=== PATIENT | female | born 1980 ===

== ENCOUNTER 2017-11-22 21:35 | Inpatient (IN) | payer OTHER ==
[~2017-11-22] VITALS: Ht 162.6 cm; Wt 98.4 kg
[2017-11-22] MEDS ORDERED: BUSP15 PO (22:16)
[2017-11-22] MEDS ORDERED: VENLAFAXINE HCL PO (22:16)
[2017-11-22] MEDS ORDERED: FLUV50 PO (22:16)
[2017-11-22] MEDS ORDERED: HYDHCL25 PO (22:16)
[2017-11-22] MEDS ORDERED: [UNRECOGNIZED DRUG - REMARK] (22:17)
[2017-11-22 22:19] LABS: Source, Urine Clean Catch
[2017-11-22 22:22] LABS: BASOPHILS ABSOLUTE AUTO 0.08 K/mm3 (0.00-0.23); BASOPHILS PERCENT AUTO 1 % (0-2); EOSINOPHILS ABSOLUTE AUTO 0.09 K/mm3 (0.00-0.68); EOSINOPHILS PERCENT AUTO 1 % (0-6); IMMATURE GRAN ABSOLUTE AUTO 0.03 K/mm3 (0.00-0.10); IMMATURE GRAN PERCENT AUTO 0 % (0-1); LYMPHOCYTES ABSOLUTE AUTO 3.56 K/mm3 (0.84-5.20); LYMPHOCYTES PERCENT AUTO 29 % (21-46); MONOCYTES ABSOLUTE AUTO 0.55 K/mm3 (0.16-1.47); MONOCYTES PERCENT AUTO 4 % (4-13); Mean Corpuscular HGB 27.6 pg (26.0-34.0); Mean Corpuscular HGB Conc 33.3 g/dL (31.5-36.5); Mean Corpuscular Volume 83 fL (80-100); NEUTROPHILS ABSOLUTE AUTO 8.07 K/mm3 (1.96-9.15); NEUTROPHILS PERCENT AUTO 65 % (41-73); Platelet Count 449 K/mm3 (150-400); RDW Coefficient Variation 14.3 % (11.7-14.2); Red Blood Cell Count 4.71 M/mm3 (3.80-5.20); White Blood Cell Count 12.38 K/mm3 (4.00-11.30)
[2017-11-22 22:23] LABS: Appearance, Urine Clear (Clear); Bilirubin, Urine Neg (Neg); Blood, Urine 2+ (Neg); Color, Urine Yellow (P-Yellow); Glucose Qualitative, Urine Neg (Neg); Ketones, Urine Neg (Neg); Leukocyte Esterase, Urine 1+ (Neg); Nitrite, Urine Neg (Neg); Protein, Urine Neg (Neg); Urobilinogen, Urine NORM (Normal)
[2017-11-22 22:38] LABS: Alanine Aminotransfer (ALT/SGP 28 U/L (12-78); Albumin, Blood 4.4 g/dL (3.4-5.0); Albumin/Globulin Ratio 1.1 (0.8-1.8); Alk Phos 88 U/L (50-136); Anion Gap 11 mmol/L (6-16); Aspartate Aminotrans (AST/SGOT 13 U/L (12-37); Bilirubin, Total 0.3 mg/dL (0.1-1.0); Blood Urea Nitrogen 9 mg/dL (8-24); Bun/Creatinine Ratio 11.8 (12.0-20.0); CO2, Blood 23 mmol/L (21-32); Chloride, Blood 107 mmol/L (98-108); Creatinine, Blood 0.76 mg/dL (0.40-1.00); Ethanol (Alcohol), Blood, Med <3 mg/dL; Globulin, Blood 4.1 g/dL (2.2-4.0); Glomerular Filtration Rate >60 (60-); Glucose, Blood 110 mg/dL (70-99); Potassium, Blood 3.5 mmol/L (3.5-5.5); Salicylate <1.7 mg/dL (2.8-20.0); Sodium, Blood 141 mmol/L (136-145); Total Protein, Blood 8.5 g/dL (6.4-8.2)
[2017-11-22 22:46] LABS: U Amphetamine Screen Not Detected; U Barbituate Screen Not Detected; U Benzodiazapine Screen Not Detected; U Buprenorphine Screen Not Detected; U Cannabinoids Screen DETECTED; U Cocaine Screen Not Detected; U Methadone Screen Not Detected; U Methamphetamine Screen Not Detected; U Opiates Screen Not Detected; U Oxycodone Screen Not Detected; U Phencyclidine Screen Not Detected; U Propoxyphene Screen Not Detected
[2017-11-22 22:47] LABS: Acetaminophen, Random <2.0 ug/mL (10.0-30.0)
[2017-11-22 22:48] LABS: Red Blood Cells, Urine 0-2 /hpf (0-2); White Blood Cells, Urine 0-2 /hpf (0-5)
[2017-11-22 22:49] LABS: Bacteria Mod /hpf; Squamous Epithelial Cells Many /hpf (Few)
[2017-11-23] MEDS ORDERED: OXCA150 PO (01:07)
[2017-11-23] MEDS ORDERED: FLUV50 PO (01:36)
[2017-11-23 04:23] LABS: BASOPHILS ABSOLUTE AUTO 0.05 K/mm3 (0.00-0.23); BASOPHILS PERCENT AUTO 1 % (0-2); EOSINOPHILS ABSOLUTE AUTO 0.08 K/mm3 (0.00-0.68); EOSINOPHILS PERCENT AUTO 1 % (0-6); Hematocrit 33.2 % (33.0-51.0); Hemoglobin 11.1 g/dL (11.5-16.0); IMMATURE GRAN ABSOLUTE AUTO 0.03 K/mm3 (0.00-0.10); IMMATURE GRAN PERCENT AUTO 0 % (0-1); LYMPHOCYTES ABSOLUTE AUTO 3.22 K/mm3 (0.84-5.20); LYMPHOCYTES PERCENT AUTO 31 % (21-46); MONOCYTES ABSOLUTE AUTO 0.47 K/mm3 (0.16-1.47); MONOCYTES PERCENT AUTO 5 % (4-13); Mean Corpuscular HGB 27.9 pg (26.0-34.0); Mean Corpuscular HGB Conc 33.4 g/dL (31.5-36.5); Mean Corpuscular Volume 83 fL (80-100); Mean Platelet Volume 9.9 fL (9.1-12.4); NEUTROPHILS ABSOLUTE AUTO 6.41 K/mm3 (1.96-9.15); NEUTROPHILS PERCENT AUTO 62 % (41-73); Platelet Count 367 K/mm3 (150-400); RDW Coefficient Variation 14.4 % (11.7-14.2); RDW Standard Deviation 43.7 fL (35.1-46.3); Red Blood Cell Count 3.98 M/mm3 (3.80-5.20); White Blood Cell Count 10.26 K/mm3 (4.00-11.30)
[2017-11-23 04:40] LABS: Anion Gap 8 mmol/L (6-16); Blood Urea Nitrogen 7 mg/dL (8-24); Bun/Creatinine Ratio 9.4 (12.0-20.0); CO2, Blood 23 mmol/L (21-32); Calcium, Blood 7.9 mg/dL (8.5-10.1); Chloride, Blood 110 mmol/L (98-108); Creatinine, Blood 0.75 mg/dL (0.40-1.00); Glomerular Filtration Rate >60 (60-); Glucose, Blood 90 mg/dL (70-99); Potassium, Blood 3.3 mmol/L (3.5-5.5); Sodium, Blood 141 mmol/L (136-145)
== END 2017-11-23 15:44 | disposition home or self-care (01) | DRG 918 ==
LOC: ER 21:35 → ICUW 11-23 00:11 → ICUE 11-23 00:11
PROVIDERS: Emergency Medicine; Hospitalist
DX: T43.592A Poisoning by other antipsychotics and neuroleptics, intentional self-harm, initial encounter (principal); N39.0 Urinary tract infection, site not specified; T43.222A Poisoning by selective serotonin reuptake inhibitors, intentional self-harm, initial encounter; F32.9 Major depressive disorder, single episode, unspecified; F43.10 Post-traumatic stress disorder, unspecified
CPT/HCPCS: 36415; 80048; 80053; 81001; 81025; 84443; 85025; 87086; 93005; 93010; 96361; 96374; 99285; G0480; J0696; J1650; J3480; J7030

== ENCOUNTER 2021-01-28 14:19 | Observation (INO) | payer OTHER ==
[~2021-01-28] VITALS: Ht 162.6 cm; Wt 119.1 kg
[~2021-01-28 14:19] MED LIST: BUSP15 PO; FLUV50 PO; HYDHCL25 PO; OXCA150 PO; [UNRECOGNIZED DRUG - REMARK]
[2021-01-28 15:34] LABS: Source, Urine Voided
[2021-01-28 15:43] LABS: Appearance, Urine Clear (Clear); Bilirubin, Urine Neg (Neg); Blood, Urine Neg (Neg); Color, Urine Yellow (P-Yellow); Glucose Qualitative, Urine Neg (Neg); Ketones, Urine Neg (Neg); Leukocyte Esterase, Urine Neg (Neg); Nitrite, Urine Neg (Neg); Protein, Urine Neg (Neg); Urobilinogen, Urine NORM (Normal)
[2021-01-28 15:54] LABS: U Amphetamine Screen Not Detected; U Barbituate Screen Not Detected; U Benzodiazapine Screen DETECTED; U Buprenorphine Screen Not Detected; U Cannabinoids Screen DETECTED; U Cocaine Screen Not Detected; U Methadone Screen Not Detected; U Methamphetamine Screen Not Detected; U Opiates Screen Not Detected; U Oxycodone Screen Not Detected; U Phencyclidine Screen Not Detected; U Propoxyphene Screen Not Detected
[2021-01-28 16:08] LABS: BASOPHILS ABSOLUTE AUTO 0.07 K/mm3 (0.00-0.23); BASOPHILS PERCENT AUTO 1 % (0-2); EOSINOPHILS ABSOLUTE AUTO 0.21 K/mm3 (0.00-0.68); EOSINOPHILS PERCENT AUTO 2 % (0-6); Hematocrit 33.6 % (33.0-51.0); IMMATURE GRAN ABSOLUTE AUTO 0.04 K/mm3 (0.00-0.10); IMMATURE GRAN PERCENT AUTO 0 % (0-1); LYMPHOCYTES ABSOLUTE AUTO 2.74 K/mm3 (0.84-5.20); LYMPHOCYTES PERCENT AUTO 29 % (21-46); MONOCYTES ABSOLUTE AUTO 0.42 K/mm3 (0.16-1.47); MONOCYTES PERCENT AUTO 4 % (4-13); Mean Corpuscular HGB 27.2 pg (26.0-34.0); Mean Corpuscular HGB Conc 32.7 g/dL (31.5-36.5); Mean Corpuscular Volume 83 fL (80-100); Mean Platelet Volume 9.5 fL (9.1-12.4); NEUTROPHILS ABSOLUTE AUTO 5.97 K/mm3 (1.96-9.15); NEUTROPHILS PERCENT AUTO 63 % (41-73); Platelet Count 429 K/mm3 (150-400); RDW Coefficient Variation 14.1 % (11.7-14.2); RDW Standard Deviation 42.2 fL (35.1-46.3); Red Blood Cell Count 4.05 M/mm3 (3.80-5.20); White Blood Cell Count 9.45 K/mm3 (4.00-11.30)
[2021-01-28 16:29] LABS: Alanine Aminotransfer (ALT/SGP 27 U/L (12-78); Albumin, Blood 3.8 g/dL (3.4-5.0); Albumin/Globulin Ratio 0.9 (0.8-1.8); Alk Phos 114 U/L (50-136); Anion Gap 5 mmol/L (6-16); Aspartate Aminotrans (AST/SGOT 11 U/L (12-37); Bilirubin, Total 0.3 mg/dL (0.1-1.0); Blood Urea Nitrogen 9 mg/dL (8-24); Bun/Creatinine Ratio 10.5 (12.0-20.0); CO2, Blood 29 mmol/L (21-32); Calcium, Blood 8.7 mg/dL (8.5-10.1); Chloride, Blood 103 mmol/L (98-108); Creatinine, Blood 0.86 mg/dL (0.40-1.00); Ethanol (Alcohol), Blood, Med <3 mg/dL; Globulin, Blood 4.1 g/dL (2.2-4.0); Glomerular Filtration Rate >60 (60-); Glucose, Blood 95 mg/dL (70-99); Potassium, Blood 3.7 mmol/L (3.5-5.5); Salicylate <1.7 mg/dL (2.8-20.0); Sodium, Blood 137 mmol/L (136-145); Total Protein, Blood 7.9 g/dL (6.4-8.2)
[2021-01-28 16:37] LABS: Acetaminophen, Random <2.0 ug/mL (10.0-30.0)
[2021-01-28] MEDS ORDERED: Prinivil10 MG PO (22:08)
[2021-01-28] MEDS ORDERED: Ativan1 MG PO (22:09)
[2021-01-28] MEDS ORDERED: PRAZ2 PO (22:10)
[2021-01-28] MEDS ORDERED: Venlafaxine HC150 MG PO (22:11)
[2021-01-28] MEDS ORDERED: SEROQUEL100 MG PO (22:11)
[2021-01-28] MEDS ORDERED: LAMO100 (22:55)
--- NOTE | 2021-01-28 23:49 | NUR ---
NO OFFICIAL ORDER FOR 2 MD HOLD AT THIS TIME. SPOKE WITH HERLINDA KRAUS, SHE STATED THAT TELEPSYCH RECOMMENDED A 2 MD HOLD, HOWEVER AT THIS TIME THE PT WANTS TO BE HERE AND IS VOLANTARILY STAYING HERE, SO SHE DID NOT FEEL IT WAS NECESSARY FOR THE 2 MD HOLD. IF THE PT ATTEMPTED TO LEAVE OR THE SITUATION CHANGES WE CAN REASSESS THE NEED FOR THE ACTUAL ORDER FOR THE 2MD HOLD.
--- NOTE | 2021-01-29 05:00 | NUR ---
SUMMARY PT ARRIVED TO FLOOR IN NO DISTRESS. PT CALM AND PLESANT. PT DENIES ANY PAIN OR DISCOMFORT. PT PROVIDED A CPAP BY RT. PT ON 24 HR CONTINOUS SPO2, SPO2 >90%. PT ONLY MODERATE RISK AND HERE VOLUNTARILY. PT NOT ON TWO MD HOLD. PT CURRENTLY SLEEPING IN NO DISTRESS. CALL LIGHT IN REACH.
--- NOTE | 2021-01-29 16:05 | NUR ---
SHIFT SUMMARY NO ACUTE CHANGES TO PRESENT THIS SHIFT. PT RESTING QUIETLY ON CPAP WHILE SLEEPING. SITTING UP IN BED TO EAT BREAKFAST. PT ON INVOLENTARY HOLD FOR SI. PT HAS DENIED SI THIS SHIFT. PT WAS TEARFUL AT ONE POINT FOR A FEW MINUTES, BUT DECLINED NEEDS, DECLINED DISCUSSION. PT'S SPOUSE HERE THIS AFTERNOON. ASSISTED PT WITH WASHING HER HAIR IN THE SHOWER. PT HAS BEEN PLEASANT AND CO-OP. DENIES FURTHER NEEDS. DISCUSSED MEDICATIONS WITH PT AND . HOME MEDS COMPLETE. CALL LT IN REACH.
--- NOTE | 2021-01-30 06:31 | NUR ---
SHIFT SUMMARY A/OX4, IND IN ROOM. USE OF CPAP AT NIGHT WITH CONT. BIOX IN PLACE. PT TEARFUL WHEN DISCUSSING CURRENT SITUATION. PROVIDED ACTIVE LISTENING AND THERAPUTIC COMMUNICATION, PT
--- NOTE | 2021-01-30 13:28 | NUR ---
PT RESTING QUIETLY AGAIN, AT START OF SHIFT, ON CPAP. PT TEARFUL AT TIMES. DR GARCES AND [employer] INTERN HERE THIS AM TO SEE PT AND DISCUSS PLAN OF CARE. PT TO BE TRANSFERED TO [facility] THIS AFTERNOON. PT HAS BEEN PLEASANT AND CO-OP. UP TO SHOWER THIS AM. PT'S HERE EARLY TODAY, PT IS LEAVING SOON. BRINGING CLOTHES FOR PT TO TAKE. PT TO TAKE HOME CPAP WITH HER WELL. NO C/O PAIN. VSS; SEE CHART. DENIED FURTHER NEEDS. UP INDEPENDENTLY IN RM. REMAINS ON CAMERA FOR SAFETY. CALL LT IN REACH.
--- NOTE | 2021-01-30 18:01 | NUR ---
[facility] HERE TO TAKE PT TO [facility]. INFO AND ORDERS GIVEN TO [place] STAFF. PT ASSISTED OUT TO CAR VIA W/CAshley ORNELAS AND GRATEFUL FOR CARE.
--- NOTE | 2021-01-30 18:13 | NUR ---
LATE ENTRY; 10:00 NURSE FROM [facility], AJAY JEFFERS, CALLED TO GET REPORT ON PT. UPDATE AND REPORT GIVEN WITH VS, DIET, TX STATUS, BEHAVIOR, AND CURRENT MEDICATIONS.
[2021-02-20] MEDS ORDERED: MIRT30 PO (20:25)
[2021-02-20] MEDS ORDERED: LAMO100 PO (20:26)
== END 2021-01-30 17:06 | disposition short-term general hospital (02) ==
LOC: ER 14:19 → MEDS 14:20 → ER 21:10 → MEDS 21:10 → ENPENDDIS 01-30 13:58 → MEDS 01-30 17:06
PROVIDERS: Emergency Medicine; ADMIT Internal Medicine
DX: F33.2 Major depressive disorder, recurrent severe without psychotic features (principal); F41.9 Anxiety disorder, unspecified; F43.10 Post-traumatic stress disorder, unspecified; G47.33 Obstructive sleep apnea (adult) (pediatric); I10 Essential (primary) hypertension; Z88.1 Allergy status to other antibiotic agents; Z91.5 Personal history of self-harm
CPT/HCPCS: 36415; 80053; 81003; 81025; 85025; 94660; 94762; 99285; A9270; G0378; G0480; Q3014

== ENCOUNTER → 2021-03-19 | Outpatient (CLI) | payer OTHER ==
[~2021-03-19] MED LIST changes: +Ativan1 MG PO; +LAMO100; +LAMO100 PO; +MIRT30 PO; +PRAZ2 PO; +Prinivil10 MG PO; +SEROQUEL100 MG PO; +Venlafaxine HC150 MG PO
[2021-03-20 15:08] LABS: HPV 16 Negative (Negative); HPV 18 Negative (Negative); HPV OTHER HR TYPES Negative (Negative)
== END ==
LOC: LAB 10:55 → LAB SHORT 10:55
PROVIDERS: Advanced Practice Midwife
DX: Z01.419 Encounter for gynecological examination (general) (routine) without abnormal findings (principal)
CPT/HCPCS: 87624; G0123

== ENCOUNTER 2021-06-26 15:11 | Observation (INO) | payer OTHER ==
[~2021-06-26] VITALS: Ht 162.6 cm; Wt 129.7 kg
[2021-06-26 16:00] LABS: Source, Urine Voided
[2021-06-26 16:17] LABS: Appearance, Urine Clear (Clear); Bilirubin, Urine Neg (Neg); Blood, Urine Neg (Neg); Glucose Qualitative, Urine Neg (Neg); Ketones, Urine Neg (Neg); Leukocyte Esterase, Urine Neg (Neg); Nitrite, Urine Neg (Neg); Protein, Urine Neg (Neg); Specific Gravity, Urine 1.015 (1.003-1.022); Urobilinogen, Urine NORM (Normal)
[2021-06-26 16:21] LABS: BASOPHILS ABSOLUTE AUTO 0.09 K/mm3 (0.00-0.23); BASOPHILS PERCENT AUTO 1 % (0-2); EOSINOPHILS ABSOLUTE AUTO 0.18 K/mm3 (0.00-0.68); EOSINOPHILS PERCENT AUTO 2 % (0-6); Hemoglobin 11.8 g/dL (11.5-16.0); IMMATURE GRAN ABSOLUTE AUTO 0.07 K/mm3 (0.00-0.10); IMMATURE GRAN PERCENT AUTO 1 % (0-1); LYMPHOCYTES ABSOLUTE AUTO 2.91 K/mm3 (0.84-5.20); LYMPHOCYTES PERCENT AUTO 26 % (21-46); MONOCYTES ABSOLUTE AUTO 0.47 K/mm3 (0.16-1.47); MONOCYTES PERCENT AUTO 4 % (4-13); Mean Corpuscular HGB 27.6 pg (26.0-34.0); Mean Corpuscular HGB Conc 33.7 g/dL (31.5-36.5); Mean Corpuscular Volume 82 fL (80-100); Mean Platelet Volume 9.7 fL (9.1-12.4); NEUTROPHILS ABSOLUTE AUTO 7.66 K/mm3 (1.96-9.15); NEUTROPHILS PERCENT AUTO 67 % (41-73); Platelet Count 411 K/mm3 (150-400); RDW Standard Deviation 44.1 fL (35.1-46.3); Red Blood Cell Count 4.28 M/mm3 (3.80-5.20); White Blood Cell Count 11.38 K/mm3 (4.00-11.30)
[2021-06-26 16:29] LABS: Color, Urine Pale Yellow (P-Yellow)
[2021-06-26 16:42] LABS: U Amphetamine Screen Not Detected; U Barbituate Screen Not Detected; U Benzodiazapine Screen DETECTED; U Buprenorphine Screen Not Detected; U Cannabinoids Screen DETECTED; U Cocaine Screen Not Detected; U Methadone Screen Not Detected; U Methamphetamine Screen Not Detected; U Opiates Screen Not Detected; U Oxycodone Screen Not Detected; U Phencyclidine Screen Not Detected; U Propoxyphene Screen Not Detected
[2021-06-26 16:51] LABS: Ethanol (Alcohol), Blood, Med <3 mg/dL; Salicylate <1.7 mg/dL (2.8-20.0); Thyroxine (T4) 10.6 ug/dL (4.8-13.9)
[2021-06-26] MEDS ORDERED: METF500 PO (16:52)
[2021-06-26] MEDS ORDERED: BUPR100 PO (16:52)
[2021-06-26] MEDS ORDERED: FERROUS GLUCON324 M3 PO (16:56)
[2021-06-26] MEDS ORDERED: FERSU300 PO (16:57)
[2021-06-26] MEDS ORDERED: ZOLP5 PO (16:58)
[2021-06-26 16:59] LABS: Alanine Aminotransfer (ALT/SGP 41 U/L (12-78); Albumin, Blood 3.8 g/dL (3.4-5.0); Albumin/Globulin Ratio 0.9 (0.8-1.8); Alk Phos 116 U/L (50-136); Anion Gap 8 mmol/L (6-16); Aspartate Aminotrans (AST/SGOT 27 U/L (12-37); Bilirubin, Total 0.4 mg/dL (0.1-1.0); Blood Urea Nitrogen 13 mg/dL (8-24); Bun/Creatinine Ratio 16.6 (12.0-20.0); CO2, Blood 24 mmol/L (21-32); Calcium, Blood 9.3 mg/dL (8.5-10.1); Chloride, Blood 103 mmol/L (98-108); Creatinine, Blood 0.78 mg/dL (0.40-1.00); Globulin, Blood 4.1 g/dL (2.2-4.0); Glomerular Filtration Rate >60 (60-); Glucose, Blood 112 mg/dL (70-99); Potassium, Blood 3.6 mmol/L (3.5-5.5); Sodium, Blood 135 mmol/L (136-145); Total Protein, Blood 7.9 g/dL (6.4-8.2)
[2021-06-26] MEDS ORDERED: OLAN5 PO (17:00)
[2021-06-26 17:09] LABS: Acetaminophen, Random <2.0 ug/mL (10.0-30.0)
[2021-06-26 17:21] LABS: SARS-Cov-2 (COVID-19) PCR, MMC NEGATIVE (NEGATIVE)
== END 2021-06-27 06:02 ==
LOC: ER 15:11 → EOR 15:12
PROVIDERS: Emergency Medicine; ADMIT Emergency Medicine
DX: F32.9 Major depressive disorder, single episode, unspecified (principal); Z88.1 Allergy status to other antibiotic agents; Z88.8 Allergy status to other drugs, medicaments and biological substances; Z79.899 Other long term (current) drug therapy; Z20.822 Contact with and (suspected) exposure to COVID-19
CPT/HCPCS: 80053; 81003; 81025; 84436; 84443; 85025; 99285; A9270; G0378; G0480; Q3014; U0004

== ENCOUNTER 2021-08-21 22:29 | Emergency (ER) | payer OTHER ==
[~2021-08-21] VITALS: Ht 162.6 cm; Wt 122.5 kg
[~2021-08-21 22:29] MED LIST changes: +BUPR100 PO; +FERROUS GLUCON324 M3 PO; +FERSU300 PO; +METF500 PO; +OLAN5 PO; +ZOLP5 PO
[2021-08-21] MEDS ORDERED: CATAPRES-TTS 11 EAC1 (23:07)
[2021-08-21] MEDS ORDERED: CLON.2 PO (23:08)
[2021-08-21] MEDS ORDERED: ABILIFY MYCITE2 M2 (23:11)
== END 2021-08-22 00:17 | disposition home or self-care (01) ==
LOC: ER 22:29
DX: S81.812A Laceration without foreign body, left lower leg, initial encounter (principal); Z23 Encounter for immunization; Z88.8 Allergy status to other drugs, medicaments and biological substances; Z79.899 Other long term (current) drug therapy; Z79.84 Long term (current) use of oral hypoglycemic drugs; W01.0XXA Fall on same level from slipping, tripping and stumbling without subsequent striking against object, initial encounter
CPT/HCPCS: 90714; A9270